=== PATIENT | male | born 1945 | race Caucasian/White ===

== ENCOUNTER 2016-11-27 14:33 | Emergency (ER) | payer MEDICARE, OTHER ==
[~2016-11-27 14:33] MED LIST: ALLEGRA PO; ASAB PO; ASPIRIN 81 MG PO; BEN25 PO; BUSPAR15 M1 PO; BUSPAR5 PO; C2 PO; CARD120 PO; CARTIA XT120 MG/24 PO; CORDARONE PO; COREG3 PO; COREG6 PO; COUMADIN4 MG PO; CRESTOR10 PO; CRESTOR20 MG PO; EFFEX37.5 PO; FISH-EPA1000 MG PO; FLONASE NAS; FLOVENT110 INH; GGACUDL PO; HALF81 PO; IMDUR30 PO; JANTOVEN1 MG PO; JANTOVEN2.5 MG PO; JANTOVEN3 MG PO; JANTOVEN4 MG PO; JANTOVEN5 MG PO; LOFIB160 PO; LOP25 PO; LORTAB 5 PO; LORTABLIQ PO; NASACORTAQ NAS; NITROQUICK0.4 MG SL; NITROSTAT0.4 MG SL; PACERONE100 MG PO; PEP20 PO; PEPCID PO; PLAVIX PO; PR12.5 PO; PRILO PO; PRIN5 PO; T3 PO; TESSALON200 MG PO; TRILIPIX135 MG PO; WARFARIN 3.5 MG PO; ZITH250 PO
[2016-11-27 15:13] LABS: BASOPHILS 0.6 %; BASOPHILS ABSOLUTE 0.04 10/3/uL (0.0-0.16); EOSINOPHILS 0.6 %; EOSINOPHILS ABSOLUTE 0.04 10/3/uL (0.0-0.53); ER CBC TAT 0 Hrs 08 Mins; HEMOGLOBIN 12.8 g/dL (13.6-17.8); IMMATURE GRANULOCYTES 0.2 %; IMMATURE GRANULOCYTES ABSOLUTE 0.01 10/3/uL (0.0-0.11); LYMPHOCYTES 20.7 %; LYMPHOCYTES ABSOLUTE 1.33 10/3/uL (0.67-4.30); MEAN CORPUS HGB CONC 33.6 g/dL (32.0-36.0); MEAN CORPUSCULAR HEMOGLOB 31.5 pg (26.0-34.0); MEAN CORPUSCULAR VOLUME 93.8 fL (80-100); MEAN PLATELET VOLUME 9.6 fL (9.2-13.0); MONOCYTES 6.2 %; NEUTROPHILS 71.7 %; NEUTROPHILS ABSOLUTE 4.59 10/3/uL (2.02-8.40); PLATELET COUNT 189 10/3/uL (150-400); RBC DISTRIBUTION WIDTH 13.7 % (12.0-16.0); RED CELL COUNT 4.06 10/6/uL (4.7-6.1); WHITE BLOOD CELLS 6.4 10/3/uL (4.5-10.5)
[2016-11-27 15:15] LABS: HEMATOCRIT 38.1 % (40.0-51.0); MANUAL DIFF NO %
[2016-11-27 15:21] LABS: INTERNATIONAL NORMAL RATI 2.3 UNITS (-); PARTIAL THROMBO TIME 36.3 SEC (22.5-37.2); PROTIME (NOT ORD) 25.2 SEC (12.0-14.5)
[2016-11-27 15:26] LABS: ASCORBIC ACID (UR NOT ORDER) NEG (NEG); BILIRUBIN, URINE NEGATIVE (NEG); ER URINALYSIS TAT 0 Hrs 09 Mins; KETONE, URINE NEGATIVE (NEG); LEUKOCYTE ESTERASE(NOT OR NEG (NEG); NITRITE (URINE) NEG (NEG); WBC (NOT ORDERED) (RFLEX) < 1 (0-5)
[2016-11-27 15:29] LABS: BUN (BLOOD UREA NITROGEN) 20 MG/DL (6-23); CALCIUM, SERUM 8.6 MG/DL (8.5-10.4); CHEST PAIN PROFILE TAT 0 Hrs 24 Mins; CHLORIDE, SERUM 110 MMOL/L (96-112); CO2 (CARBON DIOXIDE) 27 MMOL/L (24-34); CREATININE 1.51 MG/DL (0.70-1.30); GFR AFRICAN AMERICAN 53 ML/MIN (>=60); GFR NON AFRICAN AMERICAN 46 ML/MIN (>=60); GLUCOSE, SERUM 90 MG/DL (60-99); POTASSIUM, SERUM 4.3 MMOL/L (3.5-5.3); SODIUM, SERUM 143 MMOL/L (135-148); TROPONIN I <0.02 NG/ML (<0.05)
== END 2016-11-27 16:50 | disposition home or self-care (01) ==
LOC: ER 14:33
PROVIDERS: Nurse Practitioner Acute Care
DX: I48.0 Paroxysmal atrial fibrillation (principal); M54.5 Low back pain; R79.1 Abnormal coagulation profile; I10 Essential (primary) hypertension; I25.2 Old myocardial infarction; K21.9 Gastro-esophageal reflux disease without esophagitis; Z95.1 Presence of aortocoronary bypass graft; Z86.73 Personal history of transient ischemic attack (TIA), and cerebral infarction without residual deficits; Z88.1 Allergy status to other antibiotic agents; Z88.8 Allergy status to other drugs, medicaments and biological substances; Z88.2 Allergy status to sulfonamides; Z79.01 Long term (current) use of anticoagulants; Z98.2 Presence of cerebrospinal fluid drainage device; Z79.899 Other long term (current) drug therapy
CPT/HCPCS: 71010; 80048; 81001; 83735; 84484; 85025; 85610; 85730; 99285